=== PATIENT | female | born 1985 | race Caucasian/White ===

== ENCOUNTER 2017-07-02 15:47 | Observation (INO) | payer BC ==
[2017-07-02 16:28] LABS: APPEARANCE,URINE Clear (CLEAR); BILIRUBIN,URINE Negative (NEGATIVE); COLOR,URINE Yellow (YELLOW); GLUCOSE, URINE (UA) Negative (NEGATIVE); KETONES,URINE 40 mg/dL (NEGATIVE); LEUKOCYTE ESTERASE ,URINE Trace (NEGATIVE); NITRATE,URINE Negative (NEGATIVE); OCCULT BLOOD,URINE Negative (NEGATIVE); PROTEIN,URINE Negative (NEGATIVE)
[2017-07-02 16:40] LABS: BACTERIA,URINE Rare /HPF (None Seen); RBC,URINE 0-1 /HPF (0-1); SQUAMOUS EPITHELIAL CELL,UR Rare /HPF (0-2)
[2017-07-02 16:41] LABS: BASOPHILS % (AUTO) 0.5 % (0.0-5.0); EOSINOPHILS % (AUTO) 0.4 % (0.0-8.0); HEMATOCRIT 34.5 % (36-48); LYMPHOCYTES % (AUTO) 21.1 % (21.0-51.0); MEAN CORPUSCULAR HEMOGLOBIN 30.9 pg (27.0-33.0); MEAN CORPUSCULAR HGB CONC 34.7 g/dL (32.0-36.0); MONOCYTES % (AUTO) 6.2 % (3.0-13.0); NEUTROPHILS % (AUTO) 71.8 % (40.0-77.0); NUCLEATED RED BLOOD CELLS 0.1 % (0.0-0.19); PLATELET COUNT (AUTO) 317 K/uL (130-400); RED BLOOD CELL COUNT(AUTO) 3.88 MIL/uL (4.00-5.50); RED CELL DISTRIBUTION WIDTH 12.7 % (11.0-15.5); WHITE BLOOD COUNT (AUTO) 10.3 K/uL (4.8-10.8)
[2017-07-02 16:50] LABS: CREATININE 0.7 mg/dL (0.5-1.5); POTASSIUM 3.7 mmol/L (3.5-5.1)
[2017-07-02 16:54] LABS: INR 0.86 (0.85-1.15); PROTHROMBIN TIME 9.1 SEC (9.6-11.6)
[2017-07-02 16:58] LABS: ALBUMIN 2.6 g/dL (3.5-5.0)
[2017-07-02 17:08] LABS: BILIRUBIN,TOTAL 0.3 mg/dL (0.2-1.0); URIC ACID 4.6 mg/dL (2.6-7.2)
[2017-07-04 06:19] LABS: HEPATITIS Bs ANTIGEN SCREEN P Negative (Negative)
== END 2017-07-02 18:40 | disposition home or self-care (01) ==
LOC: LDH 15:47
PROVIDERS: ADMIT Specialist; ATTEND Specialist
DX: O40.3XX0 Polyhydramnios, third trimester, not applicable or unspecified (principal); O10.913 Unspecified pre-existing hypertension complicating pregnancy, third trimester; Z3A.38 38 weeks gestation of pregnancy
CPT/HCPCS: 36415; 80053; 81001; 84550; 85025; 85384; 85610; 85730; 86592; 86850; 86900; 86901; 87340; G0378 ×4

== ENCOUNTER 2017-07-07 17:47 | Inpatient (IN) | payer BC ==
[~2017-07-07] VITALS: Ht 172.7 cm; Wt 131.5 kg
[2017-07-07] MEDS ORDERED: ROPIVACAINE 0.2%200ML EPIDURAL 200 ML EP PRN (19:30)
[2017-07-07] MEDS ORDERED: EPHEDRINE SULFATE 50 MG/ML AMPULE IVP PRN (19:30)
[2017-07-07] MEDS ORDERED: LACTATED RINGERS 500 ML 500 ML IV PRN (19:30)
[2017-07-07] MEDS ORDERED: NALOXONE HCL 0.4 MG/1 ML ML IV PRN (19:30)
[2017-07-07 20:07] LABS: HEMATOCRIT 34.4 % (36-48); MEAN CORPUSCULAR HEMOGLOBIN 30.5 pg (27.0-33.0); MEAN CORPUSCULAR HGB CONC 34.4 g/dL (32.0-36.0); MEAN CORPUSCULAR VOLUME 88.7 fL (79-99); PLATELET COUNT (AUTO) 333 K/uL (130-400); RED BLOOD CELL COUNT(AUTO) 3.88 MIL/uL (4.00-5.50); RED CELL DISTRIBUTION WIDTH 12.9 % (11.0-15.5); WHITE BLOOD COUNT (AUTO) 10.5 K/uL (4.8-10.8)
[2017-07-07] MEDS: LACTATED RINGERS 1000ML 1,000 ML IV PRN (20:09)
[2017-07-07 20:11] LABS: APPEARANCE,URINE Clear (CLEAR); BILIRUBIN,URINE Negative (NEGATIVE); COLOR,URINE Yellow (YELLOW); GLUCOSE, URINE (UA) Negative (NEGATIVE); KETONES,URINE Negative (NEGATIVE); LEUKOCYTE ESTERASE ,URINE Trace (NEGATIVE); NITRATE,URINE Negative (NEGATIVE); OCCULT BLOOD,URINE Negative (NEGATIVE); PH,URINE 6.5 (5.0-8.0); PROTEIN,URINE Negative (NEGATIVE)
[2017-07-07 20:15] LABS: BACTERIA,URINE Few /HPF (None Seen); RBC,URINE None Seen /HPF (0-1)
[2017-07-07 20:17] LABS: CREATININE 0.7 mg/dL (0.5-1.5); POTASSIUM 3.7 mmol/L (3.5-5.1)
[2017-07-07 20:21] LABS: ALBUMIN 2.6 g/dL (3.5-5.0); BILIRUBIN,TOTAL 0.2 mg/dL (0.2-1.0)
[2017-07-07 20:28] LABS: INR 0.87 (0.85-1.15); PROTHROMBIN TIME 9.2 SEC (9.6-11.6)
[2017-07-08] MEDS: LACTATED RINGERS 1000ML 1,000 ML IV PRN ×2 (04:08→22:02)
[2017-07-08] MEDS ORDERED: OXYTOCIN 10 USP UNITS/ML 20 UNIT in LACTATED RINGERS 1000ML 1,000 ML IV SCH (06:00)
[2017-07-08] MEDS ORDERED: OXYTOCIN 10 USP UNITS/ML ONE (07:33)
[2017-07-08] MEDS ORDERED: MORPHINE SULFATE 10 MG/ML 1ML SYG IM PRN (17:15)
[2017-07-08] MEDS ORDERED: MORPHINE SULFATE 10 MG/ML 1ML VIAL IM PRN (21:13)
[2017-07-09] MEDS ORDERED: LACTATED RINGERS 1000ML 1,000 ML IV ONE (03:19)
[2017-07-09] MEDS ORDERED: OXYTOCIN 10 USP UNITS/ML ONE ×3 (03:19→17:25)
[2017-07-09] MEDS: LACTATED RINGERS 1000ML 1,000 ML IV PRN (03:58)
[2017-07-09] MEDS ORDERED: PROMETHAZINE HCL 25 MG/ML 1ML AMPULE IM PRN (09:15)
[2017-07-09] MEDS ORDERED: MEPERIDINE-PF 25 MG/ML SYG IVP PRN (09:15)
[2017-07-09 10:22] LABS: HEPATITIS Bs ANTIGEN SCREEN P Negative (Negative)
[2017-07-09] MEDS ORDERED: MISOPROSTOL 200 MCG TABLET ONE (13:18)
[2017-07-09] MEDS ORDERED: LIDOCAINE HCL 1% 20 ML VIAL ONE (13:18)
[2017-07-09] MEDS ORDERED: CARBOPROST TROMETHAMINE 250 MCG/ML AMP IM ONE (13:19)
[2017-07-09] MEDS ORDERED: ONDANSETRON HCL 4 MG/2 ML VIAL ONE (16:04)
[2017-07-09] MEDS ORDERED: DIPH,PERTUSS(ACELL),TET VAC/PF 0.5 ML VIAL IM PRN (16:30)
[2017-07-09] MEDS ORDERED: WITCH HAZEL 1 PAD TP PRN (16:30)
[2017-07-09] MEDS ORDERED: LANOLIN 30GM OINTMENT TP PRN (16:30)
[2017-07-09] MEDS ORDERED: OXYTOCIN-LR 20 UNITS/1000 ML 1,000 ML IV SCH (16:30)
[2017-07-09] MEDS ORDERED: MEASLES/MUMPS/RUBELLA VACCINE, LIVE 0.5 ML/VIAL SQ PRN (16:30)
[2017-07-09] MEDS ORDERED: BENZOCAINE/LANOLIN/ALOE VERA 60 ML AEROSOL TP PRN (16:30)
[2017-07-09] MEDS ORDERED: ACETAMINOPHEN 325 MG TAB PO PRN (16:30)
[2017-07-09 17:30] VITALS: BP 130/78
[2017-07-09 18:00] VITALS: BP 131/80
[2017-07-09] MEDS: IBUPROFEN 800 MG TAB PO PRN (18:52)
[2017-07-09 19:35] VITALS: BP 130/104
[2017-07-09 20:25] VITALS: BP 141/83
[2017-07-09 23:55] VITALS: BP 124/80
[2017-07-10] MEDS: ACETAMINOPHEN-CODEINE 300/30MG TAB PO PRN ×2 (00:26→08:59)
[2017-07-10 04:00] VITALS: BP 134/68
[2017-07-10] MEDS: IBUPROFEN 800 MG TAB PO PRN ×2 (04:00→12:59)
[2017-07-10 06:59] LABS: MEAN CORPUSCULAR VOLUME 88.9 fL (79-99); PLATELET COUNT (AUTO) 270 K/uL (130-400); RED BLOOD CELL COUNT(AUTO) 3.37 MIL/uL (4.00-5.50); WHITE BLOOD COUNT (AUTO) 10.3 K/uL (4.8-10.8)
[2017-07-10 07:31] VITALS: BP 124/82
[2017-07-10 12:02] VITALS: BP 141/93
[2017-07-10 15:32] VITALS: BP 130/77
== END 2017-07-10 18:30 | disposition home or self-care (01) | DRG 775 ==
LOC: LDH 17:47 → WSH 07-09 17:30
PROC: 0KQM0ZZ Repair Perineum Muscle, Open Approach (ICD-10-PCS; principal; 2017-07-09)
PROC: 10E0XZZ Delivery of Products of Conception, External Approach (ICD-10-PCS; 2017-07-09)
PROC: 10907ZC Drainage of Amniotic Fluid, Therapeutic from Products of Conception, Via Natural or Artificial Opening (ICD-10-PCS; 2017-07-09)
PROC: 3E0R3BZ Introduction of Anesthetic Agent into Spinal Canal, Percutaneous Approach (ICD-10-PCS; 2017-07-09)
PROC: 00HU33Z Insertion of Infusion Device into Spinal Canal, Percutaneous Approach (ICD-10-PCS; 2017-07-09)
PROC: 3E0234Z Introduction of Serum, Toxoid and Vaccine into Muscle, Percutaneous Approach (ICD-10-PCS; 2017-07-09)
DX: O36.63X0 Maternal care for excessive fetal growth, third trimester, not applicable or unspecified (principal); Z68.41 Body mass index [BMI] 40.0-44.9, adult; E66.01 Morbid (severe) obesity due to excess calories; O40.3XX0 Polyhydramnios, third trimester, not applicable or unspecified; O69.81X0 Labor and delivery complicated by cord around neck, without compression, not applicable or unspecified; O70.1 Second degree perineal laceration during delivery; Z37.0 Single live birth; O76 Abnormality in fetal heart rate and rhythm complicating labor and delivery; O99.214 Obesity complicating childbirth; Z23 Encounter for immunization; Z3A.39 39 weeks gestation of pregnancy
CPT/HCPCS: 36415; 80053; 81001; 84550; 85027; 85384; 85610; 85730; 86592; 86850; 86900; 86901; 87340; 90715; 93005; A4314; J2270; J2405; J2590; J3490; J7120

== ENCOUNTER 2020-10-12 15:55 | Observation (INO) | payer BC ==
[~2020-10-12] VITALS: Ht 299.7 cm; Wt 132.0 kg
[2020-10-12 16:16] VITALS: BP 145/95
[2020-10-12] MEDS ORDERED: DEXAMETHASONE SOD PHOSPHATE 4 MG/ML 1ML VIAL ONE (17:50)
[2020-10-12] MEDS: DEXAMETHASONE SOD PHOSPHATE 4 MG/ML 1ML VIAL IM SCH (18:01)
[2020-10-12 19:30] VITALS: BP 132/78
[2020-10-12] MEDS ORDERED: PNV1TABL58 PO (20:58)
[2020-10-12 23:20] VITALS: BP 138/79
[2020-10-13] MEDS: DEXAMETHASONE SOD PHOSPHATE 4 MG/ML 1ML VIAL IM SCH ×3 (00:03→13:22)
[2020-10-13 03:19] VITALS: BP 119/72
[2020-10-13 07:29] VITALS: BP 123/70
[2020-10-13 11:04] VITALS: BP 112/70
[2020-10-13 16:12] VITALS: BP 145/84
[2020-10-13 19:02] LABS: COLLECTION PERIOD,URINE 24 HR; TOTAL VOLUME 24HRS,URINE 6050 mL; TPROTEIN TIMED,URINE < 5 mg/dL; TPROTEIN U,24HR CALC 302 mg/24HR (0-165)
== END 2020-10-13 17:20 | disposition home or self-care (01) ==
LOC: WSH 15:55
PROVIDERS: ADMIT Specialist; ATTEND Specialist
DX: O13.3 Gestational [pregnancy-induced] hypertension without significant proteinuria, third trimester (principal); O09.33 Supervision of pregnancy with insufficient antenatal care, third trimester; O99.213 Obesity complicating pregnancy, third trimester; E66.01 Morbid (severe) obesity due to excess calories; Z79.52 Long term (current) use of systemic steroids; Z3A.33 33 weeks gestation of pregnancy
CPT/HCPCS: 84156; 96372; G0378; J1100

== ENCOUNTER 2020-11-07 06:30 | Inpatient (IN) | payer BC ==
[~2020-11-07 06:30] MED LIST: PNV1TABL58 PO
[2020-11-07] MEDS ORDERED: MEPERIDINE-PF 50 MG/ML SYG IVP PRN (10:00)
[2020-11-07] MEDS ORDERED: ROPIVACAINE 0.2% 100ML VIAL 100 ML EP SCH (10:00)
[2020-11-07] MEDS ORDERED: AMPICILLIN 1GM+NS 50ML 50 ML IV SCH (10:00)
[2020-11-07] MEDS ORDERED: LACTATED RINGERS 500 ML 500 ML IV PRN (10:00)
[2020-11-07] MEDS ORDERED: OXYTOCIN-LR 20 UNITS/1000 ML 1,000 ML IV SCH ×3 (10:00→18:00)
[2020-11-07] MEDS ORDERED: LACTATED RINGERS 1000ML 1,000 ML IV PRN (10:00)
[2020-11-07] MEDS ORDERED: NALOXONE HCL 0.4 MG/1 ML ML IV PRN (10:00)
[2020-11-07] MEDS ORDERED: PROMETHAZINE HCL 25 MG/ML 1ML AMPULE IM PRN (10:00)
[2020-11-07] MEDS ORDERED: AMPICILLIN 2GM+NS 100ML 100 ML IV SCH (10:00)
[2020-11-07] MEDS ORDERED: EPHEDRINE SULFATE 50 MG/ML AMPULE IVP PRN (10:00)
[2020-11-07 10:15] LABS: HEMATOCRIT 33.3 % (36-48); MEAN CORPUSCULAR HEMOGLOBIN 29.6 pg (27.0-33.0); MEAN CORPUSCULAR HGB CONC 33.6 g/dL (32.0-36.0); MEAN CORPUSCULAR VOLUME 87.9 fL (79-99); RED BLOOD CELL COUNT(AUTO) 3.79 MIL/uL (4.00-5.50); RED CELL DISTRIBUTION WIDTH 12.4 % (11.0-15.5); WHITE BLOOD COUNT (AUTO) 9.9 K/uL (4.8-10.8)
[2020-11-07] MEDS ORDERED: FENTANYL CITRATE PF 50 MCG/1 ML 2ML VIAL ONE (14:09)
[2020-11-07] MEDS ORDERED: ACETAMINOPHEN 325 MG TAB PO PRN (18:00)
[2020-11-07] MEDS ORDERED: LANOLIN 30GM OINTMENT TP PRN (18:00)
[2020-11-07] MEDS ORDERED: MEASLES/MUMPS/RUBELLA VACCINE, LIVE 0.5 ML/VIAL SQ PRN (18:00)
[2020-11-07] MEDS ORDERED: WITCH HAZEL 1 PAD TP PRN (18:00)
[2020-11-07] MEDS ORDERED: ACETAMINOPHEN WITH CODEINE 1 TAB TAB PO PRN (18:00)
[2020-11-07] MEDS ORDERED: BENZOCAINE/LANOLIN/ALOE VERA 60 ML AEROSOL TP PRN (18:00)
[2020-11-07] MEDS ORDERED: DIPH,PERTUSS(ACELL),TET VAC/PF 0.5 ML VIAL IM PRN (18:00)
[2020-11-07] MEDS: IBUPROFEN 600 MG TABLET PO PRN (20:04)
[2020-11-07 20:50] VITALS: BP 122/64
[2020-11-07] MEDS: DOCUSATE SODIUM 100 MG CAP PO SCH (20:58)
[2020-11-08] VITALS: BP 116/66
[2020-11-08 05:03] VITALS: BP 93/53
[2020-11-08 07:16] LABS: HEPATITIS Bs ANTIGEN SCREEN P Negative (Negative)
[2020-11-08] MEDS: IBUPROFEN 600 MG TABLET PO PRN ×2 (08:07→14:53)
[2020-11-08 08:22] VITALS: BP 127/65
[2020-11-08 11:53] VITALS: BP 108/65
[2020-11-08] MEDS: DOCUSATE SODIUM 100 MG CAP PO SCH (12:11)
[2020-11-08 16:57] VITALS: BP 104/62
== END 2020-11-08 18:50 | disposition home or self-care (01) | DRG 807 ==
LOC: LDH 06:30 → WSH 20:30
PROVIDERS: ADMIT Specialist; ATTEND Specialist
PROC: 10E0XZZ Delivery of Products of Conception, External Approach (ICD-10-PCS; principal; 2020-11-07)
PROC: 0HQ9XZZ Repair Perineum Skin, External Approach (ICD-10-PCS; 2020-11-07)
PROC: 0UQMXZZ Repair Vulva, External Approach (ICD-10-PCS; 2020-11-07)
PROC: 3E033VJ Introduction of Other Hormone into Peripheral Vein, Percutaneous Approach (ICD-10-PCS; 2020-11-07)
PROC: 10907ZC Drainage of Amniotic Fluid, Therapeutic from Products of Conception, Via Natural or Artificial Opening (ICD-10-PCS; 2020-11-07)
PROC: 3E0R3BZ Introduction of Anesthetic Agent into Spinal Canal, Percutaneous Approach (ICD-10-PCS; 2020-11-07)
PROC: 00HU33Z Insertion of Infusion Device into Spinal Canal, Percutaneous Approach (ICD-10-PCS; 2020-11-07)
PROC: 3E0234Z Introduction of Serum, Toxoid and Vaccine into Muscle, Percutaneous Approach (ICD-10-PCS; 2020-11-07)
PROC: 3E0134Z Introduction of Serum, Toxoid and Vaccine into Subcutaneous Tissue, Percutaneous Approach (ICD-10-PCS; 2020-11-07)
DX: O14.94 Unspecified pre-eclampsia, complicating childbirth (principal); Z37.0 Single live birth; Z3A.37 37 weeks gestation of pregnancy; O70.0 First degree perineal laceration during delivery; O71.82 Other specified trauma to perineum and vulva; Z23 Encounter for immunization
CPT/HCPCS: 36415; 85027; 86592; 86850; 86900; 86901; 87340; 90715; A4314; G0378; J2590; J2795; J3010